=== PATIENT | male | born 2000 ===

== ENCOUNTER 2025-07-13 20:41 | Emergency (ER) | payer OTHER ==
[~2025-07-13] VITALS: Ht 167.6 cm; Wt 64.0 kg
[2025-07-13] MEDS ORDERED: FAMOTIDINE/PF 20 MG/2 ML VIAL IV ONE (22:45)
[2025-07-13] MEDS ORDERED: 0.9 % SODIUM CHLORIDE 1,000 ML IV ONE (22:45)
[2025-07-13] MEDS ORDERED: ONDANSETRON HCL 2 MG/ML VIAL IV ONE (22:45)
[2025-07-13] MEDS ORDERED: ONDANSETRON HCL 2 MG/ML VIAL ONE (23:04)
[2025-07-13] MEDS ORDERED: FAMOTIDINE/PF 20 MG/2 ML VIAL ONE (23:04)
[2025-07-13 23:32] LABS: BASO % 0.1 % (0.1-1.2); EOS # 0.00 (0.04-0.54); EOS % 0.0 % (0.7-7.0); LYMPH # 0.54 (1.18-3.74); LYMPH % 6.8 % (19.3-53.1); MEAN PLATELET VOLUME 10.50 fl (9.4-12.4); MONO # 0.91 (0.24-0.82); MONO % 11.4 % (4.7-12.5); NEUT # 6.50 (1.56-6.13); NEUT % 81.4 % (34.0-71.1); RED CELL DISTRIBUTION WIDTH 11.8 % (11.6-14.4)
[2025-07-14 00:08] LABS: ALT/SGPT 29.0 U/L (12-78); AST/SGOT 32.0 U/L (15-37); BILIRUBIN TOTAL 0.57 mg/dL (0.3-1.2); BUN CREA RATIO 10.0 (7.0-25.0); CREATININE SERUM 1.03 mg/dL (0.70-1.30); GFR 87.29; GLOBULINA 3.4 G/DL (2.4-3.5); GLUCOSE FASTING 114.0 mg/dL (65-100); OSMOLALITY SERUM 279.0 MOSM/KG (275-295)
[2025-07-14 00:30] LABS: COVID-19 AG NEGATIVE (NEGATIVE)
[2025-07-14] MEDS ORDERED: PEPCID AC20 MG PO (02:10)
== END 2025-07-13 23:19 | disposition home or self-care (01) ==
LOC: ER 20:41
PROVIDERS: General Practice
DX: A05.9 Bacterial foodborne intoxication, unspecified (principal); Z20.822 Contact with and (suspected) exposure to COVID-19